=== PATIENT | male | born 1955 | race American Indian/Alaskan Native ===

== ENCOUNTER 2019-01-14 06:19 | Day surgery (SDC) | payer MEDICARE ==
[~2019-01-14] VITALS: Ht 182.9 cm; Wt 131.5 kg
[2019-01-14] VITALS (12 sets, daily range): BP systolic 105–171; BP diastolic 51–107
[2019-01-14] MEDS ORDERED: NORMAL SALINE IV SCH (07:00)
[2019-01-14] MEDS ORDERED: SODIUM BICARBONATE IV SCH (07:00)
[2019-01-14] MEDS ORDERED: normal saline 1,000 ML IV SCH (07:00)
[2019-01-14] MEDS ORDERED: diphenhydrAMINE 25mg capsule PO PRN (07:00)
[2019-01-14] MEDS ORDERED: sodium bicarbonate inj. 75 ML in dextrose 5% water 500ml 500 ML IV SCH (07:11)
[2019-01-14 07:30] LABS: BASOPHILS % (AUTO) 0.7 % (0-1); EOSINOPHILS # (AUTO) 0.2 X10'3 (0-0.9); EOSINOPHILS % (AUTO) 2.3 % (0-6); HEMATOCRIT 47.2 % (42.0-52.0); HEMOGLOBIN 15.8 g/dl (14.0-17.9); LYMPHOCYTES # (AUTO) 2.1 X10'3 (1.1-4.8); MEAN CORPUSCULAR HEMOGLOBIN 28.8 PG (27.0-31.0); MEAN CORPUSCULAR HGB CONC 33.4 g/dL (33.0-36.5); MEAN CORPUSCULAR VOLUME 86.2 FL (78-98); MEAN PLATELET VOLUME 8.3 FL (7.4-10.4); MONOCYTES # (AUTO) 0.6 X10'3 (0-0.9); MONOCYTES % (AUTO) 8.3 % (2-12); NEUTROPHILS # (AUTO) 3.8 X10'3 (1.8-7.7); NEUTROPHILS % (AUTO) 56.7 % (42-75); PLATELET COUNT 215 X10'3 (140-440); RED BLOOD COUNT 5.48 X10'6 (4.70-6.10); RED CELL DISTRIBUTION WIDTH 15.1 % (11.5-14.5); WHITE BLOOD COUNT 6.6 X10'3 (4.5-11.0)
[2019-01-14] MEDS ORDERED: midazolam 2 mg/2 ml injection ONE (07:31)
[2019-01-14 07:32] LABS: ALBUMIN 3.8 G/DL (3.4-5.0); ANION GAP 10 (8-16); BLOOD UREA NITROGEN 12 MG/DL (7-18); BUN/CREATININE RATIO 12.1 (5.4-32.0); CHLORIDE 104 MMOL/L (99-107); CREATININE 0.99 MG/DL (0.60-1.10); GLUCOSE 159 MG/DL (70-104); MAGNESIUM 1.9 MG/DL (1.5-2.4); POTASSIUM 4.1 MMOL/L (3.5-5.1); SODIUM 141 MMOL/L (135-145); TOTAL CARBON DIOXIDE 27.1 MMOL/L (24-32); eGFR 76 ML/MIN
[2019-01-14] MEDS ORDERED: LIDOcaine 1% (10mg/ml)w/preservative injection 20ml MDV ONE (07:32)
[2019-01-14] MEDS ORDERED: fentaNYL/PF 50MCG/1 ML 2ML syringe ONE (07:32)
[2019-01-14] MEDS ORDERED: iohexol 350 MG/ML 50ML vial IV ONE (07:32)
[2019-01-14] MEDS ORDERED: iohexol 350MG/ML 100ml bottle IV ONE (07:32)
[2019-01-14] MEDS ORDERED: nitroGLYCERIN-Tridil 50MG/D5W 250 ML IV ONE (07:38)
[2019-01-14] MEDS ORDERED: verapamil 2.5 mg/ml inj IV ONE (07:38)
[2019-01-14] MEDS ORDERED: heparin 1,000unit/ml 10ml vial 10 ML ONE (07:38)
[2019-01-14] MEDS ORDERED: ATOR20TA PO (07:46)
[2019-01-14] MEDS ORDERED: LISI-600 PO (07:46)
[2019-01-14] MEDS ORDERED: LEVO200T PO (07:46)
[2019-01-14] MEDS ORDERED: FENO145T38 PO (07:46)
[2019-01-14] MEDS ORDERED: FLEC100T2 PO (07:46)
== END 2019-01-14 12:20 | disposition home or self-care (01) ==
LOC: SSTAY O 06:19
PROVIDERS: ATTEND Internal Medicine Cardiovascular Disease
DX: I25.10 Atherosclerotic heart disease of native coronary artery without angina pectoris (principal); I25.82 Chronic total occlusion of coronary artery; I10 Essential (primary) hypertension; E78.5 Hyperlipidemia, unspecified; E11.9 Type 2 diabetes mellitus without complications; G47.33 Obstructive sleep apnea (adult) (pediatric); I48.0 Paroxysmal atrial fibrillation; E66.01 Morbid (severe) obesity due to excess calories; Z68.38 Body mass index [BMI] 38.0-38.9, adult; Z95.5 Presence of coronary angioplasty implant and graft; Z79.899 Other long term (current) drug therapy; Z87.891 Personal history of nicotine dependence; Z88.8 Allergy status to other drugs, medicaments and biological substances
CPT/HCPCS: 36415; 80048; 83735; 85025; 85610; 93458; 99152; 99153; C1894; J1644; J2001; J2250; J3010; J7030; J7060; Q0163; Q9967; A4620; A5120; J3490; J7040

== ENCOUNTER 2019-01-19 06:36 | Inpatient (IN) | payer MEDICARE, OTHER ==
[~2019-01-19] VITALS: Ht 188 cm; Wt 128.3 kg
[2019-01-19] VITALS (13 sets, daily range): BP systolic 95–159; BP diastolic 51–92
[~2019-01-19 06:36] MED LIST: ATOR20TA PO; FENO145T38 PO; FLEC100T2 PO; LEVO200T PO; LISI-600 PO
[2019-01-19] MEDS ORDERED: diphenhydrAMINE 25mg capsule PO PRN (06:55)
[2019-01-19 07:25] LABS: BASOPHILS # (AUTO) 0.1 X10'3 (0-0.2); EOSINOPHILS # (AUTO) 0.2 X10'3 (0-0.9); EOSINOPHILS % (AUTO) 3.2 % (0-6); HEMATOCRIT 42.5 % (42.0-52.0); LYMPHOCYTES # (AUTO) 2.1 X10'3 (1.1-4.8); MEAN CORPUSCULAR HEMOGLOBIN 28.6 PG (27.0-31.0); MEAN CORPUSCULAR VOLUME 86.7 FL (78-98); MEAN PLATELET VOLUME 8.6 FL (7.4-10.4); MONOCYTES # (AUTO) 0.8 X10'3 (0-0.9); MONOCYTES % (AUTO) 9.8 % (2-12); NEUTROPHILS # (AUTO) 4.6 X10'3 (1.8-7.7); PLATELET COUNT 225 X10'3 (140-440); RED BLOOD COUNT 4.91 X10'6 (4.70-6.10); RED CELL DISTRIBUTION WIDTH 15.1 % (11.5-14.5); WHITE BLOOD COUNT 7.8 X10'3 (4.5-11.0)
[2019-01-19] MEDS: normal saline 1,000 ML IV SCH ×2 (07:30→11:25)
[2019-01-19 07:34] LABS: ALBUMIN 3.3 G/DL (3.4-5.0); ANION GAP 8 (8-16); BLOOD UREA NITROGEN 19 MG/DL (7-18); BUN/CREATININE RATIO 19.2 (5.4-32.0); CALCIUM 8.5 MG/DL (8.5-10.1); CHLORIDE 107 MMOL/L (99-107); CREATININE 0.99 MG/DL (0.60-1.10); GLUCOSE 137 MG/DL (70-104); MAGNESIUM 1.9 MG/DL (1.5-2.4); POTASSIUM 4.2 MMOL/L (3.5-5.1); SODIUM 142 MMOL/L (135-145); TOTAL CARBON DIOXIDE 26.9 MMOL/L (24-32); eGFR 76 ML/MIN
[2019-01-19] MEDS ORDERED: iohexol 350 MG/1 ML 200ml bottle ONE ×2 (07:52→10:00)
[2019-01-19] MEDS ORDERED: midazolam 2 mg/2 ml injection ONE ×4 (07:52→11:52)
[2019-01-19] MEDS ORDERED: LIDOcaine 1% (10mg/ml)w/preservative injection 20ml MDV ONE (07:52)
[2019-01-19] MEDS ORDERED: heparin 1,000unit/ml 10ml vial 10 ML ONE ×2 (07:52→10:24)
[2019-01-19] MEDS ORDERED: fentaNYL/PF 50MCG/1 ML 2ML syringe ONE ×2 (07:52→08:46)
[2019-01-19] MEDS ORDERED: proCHLORperazine 10 MG/2 ml inj ONE (08:46)
[2019-01-19] MEDS ORDERED: iohexol 350MG/ML 100ml bottle IV ONE (09:01)
[2019-01-19] MEDS ORDERED: nitroGLYCERIN-Tridil 50MG/D5W 250 ML IV ONE (09:02)
[2019-01-19] MEDS ORDERED: ticagrelor 90mg tablet ONE (09:14)
[2019-01-19] MEDS ORDERED: vancomycin 1,000mg inj ONE (10:00)
[2019-01-19] MEDS ORDERED: amiodarone 150mg/dext, iso-os 100 ML IV ONE (10:00)
[2019-01-19] MEDS ORDERED: cefTAZidime inj. 1 GM in normal saline 100ml IV soln 100 ML IV ONE (10:05)
[2019-01-19] MEDS ORDERED: tirofiban 5mg in NS 100mL 100 ML IV ONE (10:10)
[2019-01-19] MEDS ORDERED: potassium Cl 20 mEq SR tablet PO PRN (10:15)
[2019-01-19] MEDS ORDERED: magnesium Cl slow-release 64mg tablet PO PRN (10:15)
[2019-01-19] MEDS ORDERED: ondansetron/PF 4mg/2ml inj IV PRN (10:15)
[2019-01-19] MEDS ORDERED: sodium phosphate inj. 30 MMOL in dextrose 5%-water 250 ML IV PRN (10:15)
[2019-01-19] MEDS ORDERED: Neutra Phos packet PO PRN (10:15)
[2019-01-19] MEDS ORDERED: magnesium 2GM in 50ml NS 50 ML IV PRN (10:15)
[2019-01-19] MEDS ORDERED: magnesium 4gm in 100ml NS 100 ML IV PRN (10:15)
[2019-01-19] MEDS ORDERED: sodium phosphate inj. 15 MMOL in dextrose 5%-water 150 ML IV PRN (10:15)
[2019-01-19] MEDS ORDERED: alteplase 1 mg/ml 5ml syringe ICATH ONE ×2 (10:15→10:25)
[2019-01-19] MEDS ORDERED: acetaminophen 325mg tablet PO PRN (10:15)
[2019-01-19] MEDS ORDERED: NORepinephrine 8mg/ 250ml NS 250 ML IV ONE (10:19)
[2019-01-19] MEDS ORDERED: NORepinephrine 8mg/ 250ml NS 250 ML IV SCH (10:20)
[2019-01-19] MEDS ORDERED: CISatracurium **Bolus** 2 mg/ml inj IV PRN (10:20)
[2019-01-19] MEDS ORDERED: methylPREDNISolone sod succ 125mg/2ml vial IV ONE (10:20)
[2019-01-19] MEDS ORDERED: sodium bicarbonate (8.4%) 1 mEq/ml syringe ONE ×3 (10:39→12:00)
[2019-01-19 10:40] LABS: ABG BASE EXCESS -16.3 mmol/L (-2.0-3.0); ABG HCO3 13.4 mmol/L (22.0-26.0); ABG OXYGEN SATURATION 94.9 % (95-98); ABG PCO2 (T) 46.4 mmHg (35.0-45.0); ABG PH (T) 7.077 (7.350-7.450); ABG PO2 (T) 112.6 mmHg (83-108); FCOHb 0.6 % (0.5-1.5); FMetHb 0.3 % (0.3-1.12); PEEP 10 cm H2O; RESPIRATORY RATE 16 b/min; TIDAL VOLUME 500 mL; TOTAL HEMOGLOBIN 13.3 G/dl (14.0-17.9)
--- NOTE | 2019-01-19 11:00 | NUR ---
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 Needed 15 defib attempts. Brought to room 2007 to start hypothermic protocol.
[2019-01-19] MEDS: amiodarone/D5 360MG/200ML BAG 200 ML IV SCH ×3 (11:22→22:08)
[2019-01-19] MEDS: NS IV SCH ×2 (11:23→21:15)
[2019-01-19] MEDS: TIROFIBAN IV SCH ×2 (11:23→21:15)
[2019-01-19] MEDS ORDERED: FENTANYL-0.9 % NACL/PF 100 ML IV PRN (11:45)
[2019-01-19] MEDS ORDERED: midazolam 100mg in NS 100ml 100 ML IV PRN (11:45)
[2019-01-19] MEDS ORDERED: midazolam 2 mg/2 ml injection IV PRN (11:45)
[2019-01-19] MEDS: mineral oil/petrolatum ophthal oint OP SCH ×3 (12:00→20:49)
[2019-01-19] MEDS ORDERED: epiNEPHrine 0.1mg/ml 10ml syringe ONE (12:00)
[2019-01-19] MEDS ORDERED: adenosine 3mg/ml 2ml vial IV ONE (12:00)
[2019-01-19] MEDS ORDERED: LIDOcaine 2% (20 mg/ml) 5ml cardiac syringe ONE (12:00)
[2019-01-19] MEDS ORDERED: etomidate 2mg/ml inj. ONE (12:00)
[2019-01-19] MEDS ORDERED: atropine 0.1mg/ml 10ml syringe ONE (12:00)
[2019-01-19] MEDS ORDERED: amiodarone 50MG/ML inj IV ONE (12:00)
[2019-01-19 12:30] LABS: ABG BASE EXCESS -5.1 mmol/L (-2.0-3.0); ABG HCO3 21.2 mmol/L (22.0-26.0); ABG OXYGEN SATURATION 97.9 % (95-98); ABG PCO2 (T) 43.8 mmHg (35.0-45.0); ABG PH (T) 7.303 (7.350-7.450); ABG PO2 (T) 181.2 mmHg (83-108); FCOHb 0.3 % (0.5-1.5); FMetHb 0.3 % (0.3-1.12); FO2Hb 97.3 % (94-100); MINUTE VOLUME 16 L/min; PEEP 5 cm H2O; RESPIRATORY RATE 24 b/min; RESPIRATORY RATE (OBSERVED) 27 b/min; TIDAL VOLUME 500 mL
[2019-01-19 12:35] LABS: OXYGEN SATURATION (MIXED VEN) 50.8 % (60-80); PO2 MIXED VENOUS (TEMP COR) 29.3 mmHg (35-46)
[2019-01-19 12:41] LABS: BASOPHILS % (AUTO) 0.1 % (0-1); EOSINOPHILS % (AUTO) 0.1 % (0-6); HEMATOCRIT 43.9 % (42.0-52.0); LYMPHOCYTES # (AUTO) 1.7 X10'3 (1.1-4.8); LYMPHOCYTES % (AUTO) 9.2 % (21-51); MEAN CORPUSCULAR HEMOGLOBIN 27.8 PG (27.0-31.0); MEAN CORPUSCULAR HGB CONC 31.9 g/dL (33.0-36.5); MEAN CORPUSCULAR VOLUME 87.1 FL (78-98); MEAN PLATELET VOLUME 8.5 FL (7.4-10.4); MONOCYTES # (AUTO) 0.8 X10'3 (0-0.9); MONOCYTES % (AUTO) 4.4 % (2-12); NEUTROPHILS # (AUTO) 16.4 X10'3 (1.8-7.7); NEUTROPHILS % (AUTO) 86.2 % (42-75); PLATELET COUNT 257 X10'3 (140-440); RED BLOOD COUNT 5.04 X10'6 (4.70-6.10); RED CELL DISTRIBUTION WIDTH 15.1 % (11.5-14.5)
[2019-01-19] MEDS: midazolam 100mg in NS 100ml 100 ML IV PRN (12:44)
[2019-01-19] MEDS: FENTANYL-0.9 % NACL/PF 100 ML IV PRN (12:58)
[2019-01-19 13:04] LABS: AMMONIA < 10 UMOL/L (11-32)
[2019-01-19 13:07] LABS: ALANINE AMINOTRANSFERASE 345 U/L (12-78); ALBUMIN 3.1 G/DL (3.4-5.0); ALBUMIN/GLOBULIN RATIO 0.8 (1.1-1.5); ALKALINE PHOSPHATASE 83 IU/L (46-116); AMYLASE 40 U/L (25-115); ANION GAP 16 (8-16); ASPARTATE AMINO TRANSFERASE 387 U/L (10-37); BILIRUBIN,TOTAL 0.5 MG/DL (0.1-1.0); BLOOD UREA NITROGEN 18 MG/DL (7-18); BUN/CREATININE RATIO 14.2 (5.4-32.0); CALCIUM 7.5 MG/DL (8.5-10.1); CHLORIDE 103 MMOL/L (99-107); CREATININE 1.27 MG/DL (0.60-1.10); GLUCOSE 315 MG/DL (70-104); LDL CHOLESTEROL 108 MG/DL (50-100); LIPASE 75 U/L (73-393); PHOSPHORUS 4.9 MG/DL (2.3-4.5); POTASSIUM 4.1 MMOL/L (3.5-5.1); SODIUM 142 MMOL/L (135-145); TOTAL CARBON DIOXIDE 22.6 MMOL/L (24-32); TOTAL PROTEIN 7.1 G/DL (6.4-8.2); eGFR 57 ML/MIN
[2019-01-19] MEDS ORDERED: nitroGLYCERIN-Tridil 50MG/D5W 250 ML IV PRN (13:10)
[2019-01-19 13:15] LABS: LACTIC SEPSIS 6.6 MMOL/L (0.4-2.0)
[2019-01-19] MEDS ORDERED: esmolol/sodium cl bag 250 ML IV SCH (13:15)
[2019-01-19] MEDS: esmolol/sodium cl bag 250 ML IV SCH ×2 (13:21→21:15)
--- NOTE | 2019-01-19 13:33 | NUR ---
PEr Dr. Guerrero, patient received Brilinta in [facility].
[2019-01-19] MEDS: ipratropium/albuterol 3ml nebule NEB PRN ×2 (13:47→19:11)
[2019-01-19 14:05] LABS: PARTIAL THROMBOPLASTIN TIME 45 SECONDS (22-32); PLATELET COUNT 257 X10'3 (140-440)
[2019-01-19 14:06] LABS: D-DIMER 14.93 MG/L FEU (0-0.50)
[2019-01-19] MEDS: methylPREDNISolone sod succ 125mg/2ml vial IV SCH ×2 (14:33→20:47)
[2019-01-19] MEDS ORDERED: dextrose 50%-water 50ml dispensing syringe IV PRN ×2 (14:55)
[2019-01-19] MEDS ORDERED: MESSAGE TO PHARMACY PO ONE (14:55)
[2019-01-19] MEDS ORDERED: dextrose ORAL solution 15 GM/59 ML bottle PO PRN ×2 (14:55)
[2019-01-19] MEDS ORDERED: glucagon, human recombinant 1mg kit SUBCUT PRN (14:55)
[2019-01-19] MEDS: ceftazidime 1000mg in D5W 50ml 50 ML IV SCH (16:38)
[2019-01-19 16:46] LABS: ABG BASE EXCESS -6.1 mmol/L (-2.0-3.0); ABG HCO3 17.4 mmol/L (22.0-26.0); ABG OXYGEN SATURATION 97.2 % (95-98); ABG PH (T) 7.395 (7.350-7.450); ABG PO2 (T) 114.6 mmHg (83-108); FCOHb 0.3 % (0.5-1.5); FLOW 35 L/min; FMetHb 0.3 % (0.3-1.12); FO2Hb 96.6 % (94-100); MINUTE VOLUME 12 L/min; PATIENT TEMPERATURE 36.9; PEEP 5 cm H2O; RESPIRATORY RATE 24 b/min; RESPIRATORY RATE (OBSERVED) 24 b/min; TIDAL VOLUME 500 mL; TOTAL HEMOGLOBIN 13.8 G/dl (14.0-17.9)
--- NOTE | 2019-01-19 16:50 | NUR ---
Updated Dr. Guerrero via phone regarding dropping CO2 on monitor of 24, ABG shows CO2 29, Bicarb 17 and pH 7.395. He suggested to decrease FiO2 and possible extubate tomorrow. He wants to hold off on giving dobutamine. Addendum: 01/19/19 at 1842 by Karla Jones RN He states he does not want to give bicarb.
--- NOTE | 2019-01-19 18:40 | NUR ---
Problems reprioritized. Patient report given, questions answered & plan of care reviewed with Emiliano GRIMM.
[2019-01-19 18:54] LABS: CLARITY,URINE CLEAR (Clear); COLOR,URINE YELLOW (Yellow); GLUCOSE, URINE 500 mg/dl (Neg); KETONES,URINE 40 mg/dl (Neg); LEUKOCYTE ESTERASE ,URINE NEGATIVE (Neg); NITRITES, URINE NEGATIVE (Neg); OCCULT BLOOD,URINE LARGE (Neg); PROTEIN,URINE 100 mg/dl (Neg); UROBILINOGEN,URINE 0.2 E.U/dL (0.2-1.0)
[2019-01-19 18:59] LABS: UA COLLECTION TYPE FOLEY CATH
[2019-01-19 19:02] LABS: AMORPHOUS URATES 1+; BACTERIA,URINE FEW /HPF (Neg); MUCUS STRANDS NONE SEEN /LPF (Neg); SQUAMOUS EPITHELIAL CELL,UR NONE SEEN /LPF (FEW)
[2019-01-19] MEDS ORDERED: docusate sod 100mg capsule PO SCH (20:00)
[2019-01-19] MEDS ORDERED: vancomycin/NS 1 GM ADD-VANTAGE 250 ML IV SCH (20:00)
[2019-01-19] MEDS: ticagrelor 90mg tablet PO SCH (20:47)
[2019-01-19] MEDS: insulin Lispro (HumaLOG) vial - multi-dose SQ SCH (20:52)
[2019-01-19] MEDS: insulin glargine (Lantus) pen - multi-dose SQ SCH (20:54)
[2019-01-20] VITALS (27 sets, daily range): BP systolic 89–149; BP diastolic 49–96
[2019-01-20] MEDS: NS IV SCH ×5 (00:02→11:26)
[2019-01-20] MEDS: TIROFIBAN IV SCH ×5 (00:02→11:26)
[2019-01-20] MEDS: ceftazidime 1000mg in D5W 50ml 50 ML IV SCH ×3 (00:10→15:53)
[2019-01-20] MEDS: mineral oil/petrolatum ophthal oint OP SCH ×4 (00:11→12:00)
[2019-01-20] MEDS: methylPREDNISolone sod succ 125mg/2ml vial IV SCH ×4 (01:49→20:55)
[2019-01-20] MEDS: insulin Lispro (HumaLOG) vial - multi-dose SQ SCH ×3 (01:53→21:15)
[2019-01-20] MEDS: esmolol/sodium cl bag 250 ML IV SCH ×4 (02:13→21:17)
[2019-01-20 02:35] LABS: ABG HCO3 21.6 mmol/L (22.0-26.0); ABG OXYGEN SATURATION 96.3 % (95-98); ABG PCO2 (T) 30.4 mmHg (35.0-45.0); ABG PH (T) 7.471 (7.350-7.450); ABG PO2 (T) 94.2 mmHg (83-108); FCOHb 0.3 % (0.5-1.5); FMetHb 0.3 % (0.3-1.12); FO2Hb 95.7 % (94-100); MINUTE VOLUME 12 L/min; PATIENT TEMPERATURE 37.3; PEEP 5 cm H2O; RESPIRATORY RATE 24 b/min; RESPIRATORY RATE (OBSERVED) 24 b/min; TIDAL VOLUME 500 mL; TOTAL HEMOGLOBIN 12.9 G/dl (14.0-17.9)
[2019-01-20 02:50] LABS: BASOPHILS % (AUTO) 0 % (0-1); EOSINOPHILS % (AUTO) 0 % (0-6); HEMATOCRIT 39.7 % (42.0-52.0); HEMOGLOBIN 12.7 g/dl (14.0-17.9); LYMPHOCYTES % (AUTO) 7.2 % (21-51); MEAN CORPUSCULAR HEMOGLOBIN 27.6 PG (27.0-31.0); MEAN CORPUSCULAR HGB CONC 32.1 g/dL (33.0-36.5); MEAN PLATELET VOLUME 8.8 FL (7.4-10.4); MONOCYTES # (AUTO) 0.6 X10'3 (0-0.9); MONOCYTES % (AUTO) 4.2 % (2-12); NEUTROPHILS # (AUTO) 12.8 X10'3 (1.8-7.7); NEUTROPHILS % (AUTO) 88.6 % (42-75); PLATELET COUNT 236 X10'3 (140-440); RED BLOOD COUNT 4.61 X10'6 (4.70-6.10); RED CELL DISTRIBUTION WIDTH 15.2 % (11.5-14.5); WHITE BLOOD COUNT 14.5 X10'3 (4.5-11.0)
[2019-01-20 03:09] LABS: ALANINE AMINOTRANSFERASE 272 U/L (12-78); ALBUMIN 2.6 G/DL (3.4-5.0); ALBUMIN/GLOBULIN RATIO 0.7 (1.1-1.5); ALKALINE PHOSPHATASE 62 IU/L (46-116); ANION GAP 12 (8-16); ASPARTATE AMINO TRANSFERASE 490 U/L (10-37); BILIRUBIN,TOTAL 0.3 MG/DL (0.1-1.0); BLOOD UREA NITROGEN 20 MG/DL (7-18); BUN/CREATININE RATIO 16.3 (5.4-32.0); CALCIUM 7.3 MG/DL (8.5-10.1); CHLORIDE 108 MMOL/L (99-107); CREATININE 1.23 MG/DL (0.60-1.10); GLUCOSE 282 MG/DL (70-104); MAGNESIUM 1.6 MG/DL (1.5-2.4); PHOSPHORUS 2.1 MG/DL (2.3-4.5); POTASSIUM 4.4 MMOL/L (3.5-5.1); SODIUM 141 MMOL/L (135-145); TOTAL PROTEIN 6.2 G/DL (6.4-8.2); eGFR 59 ML/MIN
[2019-01-20] MEDS: amiodarone/D5 360MG/200ML BAG 200 ML IV SCH ×4 (03:29→22:24)
[2019-01-20] MEDS: normal saline 1,000 ML IV SCH ×3 (03:33→22:55)
[2019-01-20 03:43] LABS: TROPONIN I 88.93 NG/ML (0.0-0.05)
[2019-01-20] MEDS: midazolam 100mg in NS 100ml 100 ML IV PRN (04:56)
[2019-01-20] MEDS: FENTANYL-0.9 % NACL/PF 100 ML IV PRN (04:57)
--- NOTE | 2019-01-20 06:30 | NUR ---
Patient in room CICU 2007. I have received report from Emiliano GRIMM and had the opportunity to ask questions and assume patient care.
[2019-01-20] MEDS: pantoprazole 40 MG vial IV SCH (08:00)
[2019-01-20] MEDS ORDERED: FLECAINIDE ACETATE PO SCH (08:00)
[2019-01-20] MEDS: lisinopril 20mg tablet PO SCH (08:00)
[2019-01-20] MEDS: fenofibrate 145mg tablet PO SCH (08:19)
[2019-01-20] MEDS: docusate sodium 100mg/10ml UD cup OGT SCH ×2 (08:19→20:56)
[2019-01-20] MEDS: atorvastatin 20mg tablet PO SCH (08:19)
[2019-01-20] MEDS: ticagrelor 90mg tablet PO SCH ×2 (08:19→20:56)
[2019-01-20] MEDS: levoTHYROXINE 75mcg tablet PO SCH (08:22)
[2019-01-20] MEDS ORDERED: furosemide 20 MG/2 ML vial IV ONE (08:55)
--- NOTE | 2019-01-20 11:12 | NUR ---
Extubated and placed on 3LNC. Patient alert and oriented, swallowing well.
[2019-01-20] MEDS ORDERED: VANCOMYCIN LEVEL IV ONE (11:30)
--- NOTE | 2019-01-20 11:30 | NUR ---
Spoke to Dr. Talbert about Aggrastat continuing, beginning Heparin, and possibly holding Flecanide while Amiodarone is running. Flecanide will be held, Heparin will be started, and Aggrastat has orders to stop at 1600. Per Dr. Guerrero, once Aggrastat is finished, Left Groin Art line will be D/C'd, as well as Right Groin Central Line. PICC line to be placed.
[2019-01-20] MEDS ORDERED: nitroGLYCERIN-Tridil 50MG/D5W 250 ML IV PRN (11:50)
[2019-01-20] MEDS ORDERED: HYDROmorphone 1 mg/ml syringe IV PRN (11:55)
--- NOTE | 2019-01-20 11:58 | NUR ---
DM Consult: Pt intubated s/p v.fib arrest w/ [place]. EF now 25% down from normal ranges last week per MD. Pending extubation today as well as diet advancement to carb controlled following. Hx DM A1C 7.0; will need ed once stable s/p extubation. LBM / receiving colace. Rogelio 12; skin intact. Will continue to monitor. Rec: 1. advance to carb controlled/heart healthy diet per MD s/p extubation 2. DM ed once stable prior to d/c 3. wt per rx Addendum: 01/20/19 at [address] Amended: Links added.
[2019-01-20] MEDS ORDERED: ISOS30TA6 PO (12:06)
[2019-01-20] MEDS: HYDROmorphone inj. 0.5 MG/0.5 ML DISP.SYRIN IV PRN ×2 (15:56→21:04)
--- NOTE | 2019-01-20 17:03 | NUR ---
1600 - Aggrastat d/c'd 1622 - Femoral Sheath D/c'd, pressure held for 15 minutes, no hematoma, no s/s of abnormal bleeding. Femstop applied as patient is on Brillinta, Aggrastat, and ASA. 1640 - Left groin central line D/C'd, no abnormal signs or symptoms noted at insertion site.
--- NOTE | 2019-01-20 18:30 | NUR ---
Patient in room CICU 2007. I have received report and had the opportunity to ask questions and assume patient care.
--- NOTE | 2019-01-20 18:36 | NUR ---
Problems reprioritized. Patient report given, questions answered & plan of care reviewed with Mary GRIMM.
[2019-01-20] MEDS: heparin, porcine 5000 units/ml vial SQ SCH (20:56)
[2019-01-20] MEDS: lactobacillus rhamnosus 10,000 MMU CELLS/CAPSULE PO SCH (20:56)
[2019-01-20] MEDS: Melatonin 3mg tablet PO SCH (21:00)
[2019-01-20] MEDS: insulin glargine (Lantus) pen - multi-dose SQ SCH (21:17)
[2019-01-21] VITALS (24 sets, daily range): BP systolic 99–167; BP diastolic 44–96
--- NOTE | 2019-01-21 | NUR ---
femstop removed. hemostasis achieved. dressing is dry and intact without hematoma. pt educated on s/s of bleeding. pt verbalized understanding of education.
[2019-01-21] MEDS: ceftazidime 1000mg in D5W 50ml 50 ML IV SCH ×4 (01:02→23:46)
[2019-01-21] MEDS: methylPREDNISolone sod succ 125mg/2ml vial IV SCH ×2 (02:02→09:16)
[2019-01-21] MEDS: esmolol/sodium cl bag 250 ML IV SCH ×2 (04:09→10:38)
[2019-01-21 04:28] LABS: BASOPHILS % (AUTO) 0.1 % (0-1); EOSINOPHILS % (AUTO) 0 % (0-6); HEMATOCRIT 36.5 % (42.0-52.0); HEMOGLOBIN 11.8 g/dl (14.0-17.9); LYMPHOCYTES # (AUTO) 1.2 X10'3 (1.1-4.8); LYMPHOCYTES % (AUTO) 6.7 % (21-51); MEAN CORPUSCULAR HEMOGLOBIN 28.1 PG (27.0-31.0); MEAN CORPUSCULAR HGB CONC 32.4 g/dL (33.0-36.5); MEAN CORPUSCULAR VOLUME 86.5 FL (78-98); MEAN PLATELET VOLUME 8.8 FL (7.4-10.4); MONOCYTES % (AUTO) 5.5 % (2-12); NEUTROPHILS # (AUTO) 16.2 X10'3 (1.8-7.7); NEUTROPHILS % (AUTO) 87.7 % (42-75); PLATELET COUNT 177 X10'3 (140-440); RED BLOOD COUNT 4.22 X10'6 (4.70-6.10); RED CELL DISTRIBUTION WIDTH 15.1 % (11.5-14.5); WHITE BLOOD COUNT 18.4 X10'3 (4.5-11.0)
[2019-01-21] MEDS: amiodarone/D5 360MG/200ML BAG 200 ML IV SCH ×2 (04:36→10:32)
[2019-01-21 04:53] LABS: ALANINE AMINOTRANSFERASE 190 U/L (12-78); ALBUMIN 2.7 G/DL (3.4-5.0); ALBUMIN/GLOBULIN RATIO 0.8 (1.1-1.5); ALKALINE PHOSPHATASE 59 IU/L (46-116); ANION GAP 9 (8-16); ASPARTATE AMINO TRANSFERASE 193 U/L (10-37); BILIRUBIN,TOTAL 0.3 MG/DL (0.1-1.0); BLOOD UREA NITROGEN 22 MG/DL (7-18); BUN/CREATININE RATIO 18.6 (5.4-32.0); CALCIUM 7.7 MG/DL (8.5-10.1); CHLORIDE 107 MMOL/L (99-107); CREATININE 1.18 MG/DL (0.60-1.10); GLUCOSE 222 MG/DL (70-104); MAGNESIUM 1.8 MG/DL (1.5-2.4); PHOSPHORUS 3.3 MG/DL (2.3-4.5); POTASSIUM 4.2 MMOL/L (3.5-5.1); SODIUM 140 MMOL/L (135-145); TOTAL CARBON DIOXIDE 23.8 MMOL/L (24-32); TOTAL PROTEIN 6.3 G/DL (6.4-8.2); eGFR 62 ML/MIN
[2019-01-21 05:34] LABS: TROPONIN I 41.93 NG/ML (0.0-0.05)
[2019-01-21] MEDS: normal saline 1,000 ML IV SCH (08:55)
[2019-01-21] MEDS: levoTHYROXINE 75mcg tablet PO SCH (09:10)
[2019-01-21] MEDS: docusate sodium 100mg/10ml UD cup OGT SCH ×2 (09:14→20:35)
[2019-01-21] MEDS: ticagrelor 90mg tablet PO SCH ×2 (09:14→20:36)
[2019-01-21] MEDS: lactobacillus rhamnosus 10,000 MMU CELLS/CAPSULE PO SCH ×2 (09:14→20:36)
[2019-01-21] MEDS: fenofibrate 145mg tablet PO SCH (09:14)
[2019-01-21] MEDS: lisinopril 20mg tablet PO SCH (09:14)
[2019-01-21] MEDS: atorvastatin 20mg tablet PO SCH (09:14)
[2019-01-21] MEDS: heparin, porcine 5000 units/ml vial SQ SCH ×2 (09:15→20:36)
[2019-01-21] MEDS: insulin Lispro (HumaLOG) vial - multi-dose SQ SCH ×3 (09:37→20:44)
[2019-01-21] MEDS: pantoprazole 40 MG vial IV SCH (09:40)
[2019-01-21] MEDS ORDERED: bisacodyl 10mg suppository rectal RC PRN (10:15)
--- NOTE | 2019-01-21 11:25 | NUR ---
reassessment: Pt s/p extubation PO 50-75% first meals. LBM 01/18. Per RN pt reports checking GLU because of SO DM usually 110-140 mg/dl at home but pt is not acutally aware of own DM. Requires official MD discussion prior to RD visit for DM ed. Will continue to monitor. Rec: 1. continue carb controlled diet 2. DM ed once stable prior to d/c following official DX 3. wt per rx Addendum: 01/21/19 at [address] Amended: Links added.
[2019-01-21] MEDS: furosemide 40mg/4ml inj IV SCH (11:53)
[2019-01-21] MEDS: carVEDilol 3.125mg tablet PO SCH ×2 (11:53→20:36)
[2019-01-21] MEDS ORDERED: LORazepam 2 mg/ml vial IV ONE (15:10)
--- NOTE | 2019-01-21 18:37 | NUR ---
Problems reprioritized. Patient report given, questions answered & plan of care reviewed with Mac RN.
[2019-01-21] MEDS ORDERED: carVEDilol 3.125mg tablet PO SCH (20:00)
[2019-01-21] MEDS ORDERED: VANCOMYCIN LEVEL IV ONE (20:30)
[2019-01-21] MEDS: amiodarone 200mg tablet PO SCH (20:36)
[2019-01-21] MEDS: HYDROmorphone inj. 0.5 MG/0.5 ML DISP.SYRIN IV PRN (20:37)
[2019-01-21] MEDS: Melatonin 3mg tablet PO SCH (20:48)
[2019-01-21] MEDS: insulin glargine (Lantus) pen - multi-dose SQ SCH (20:48)
[2019-01-21] MEDS ORDERED: polyvinyl alcohol ophthalmic drops 15ml bottle EACHEYE PRN (22:10)
[2019-01-21] MEDS ORDERED: guaiFENesin 200 MG/10 ML oral syrup UD cup PO PRN (23:10)
[2019-01-22] VITALS (14 sets, daily range): BP systolic 102–183; BP diastolic 64–93
--- NOTE | 2019-01-22 06:00 | NUR ---
RN Note -Shift Summary Pt has been unable to sleep, refused sleep medication. Has been increasingly restless and anxious throughout shift.
--- NOTE | 2019-01-22 06:00 | NUR ---
Problems reprioritized. Patient report given, questions answered & plan of care reviewed with Art, RN.
--- NOTE | 2019-01-22 06:22 | NUR ---
Patient in room CICU 2007. I have received report from Eddie GRIMM and had the opportunity to ask questions and assume patient care.
[2019-01-22] MEDS ORDERED: VANCOMYCIN LEVEL IV ONE (07:30)
[2019-01-22] MEDS: docusate sodium 100mg/10ml UD cup OGT SCH ×2 (07:54→21:31)
[2019-01-22 07:55] LABS: BASOPHILS % (AUTO) 0.2 % (0-1); EOSINOPHILS % (AUTO) 0 % (0-6); HEMATOCRIT 37.4 % (42.0-52.0); HEMOGLOBIN 12.1 g/dl (14.0-17.9); LYMPHOCYTES # (AUTO) 1.7 X10'3 (1.1-4.8); LYMPHOCYTES % (AUTO) 9.4 % (21-51); MEAN CORPUSCULAR HEMOGLOBIN 28.1 PG (27.0-31.0); MEAN CORPUSCULAR HGB CONC 32.3 g/dL (33.0-36.5); MEAN CORPUSCULAR VOLUME 86.9 FL (78-98); MONOCYTES # (AUTO) 1.7 X10'3 (0-0.9); MONOCYTES % (AUTO) 9.6 % (2-12); NEUTROPHILS # (AUTO) 14.2 X10'3 (1.8-7.7); NEUTROPHILS % (AUTO) 80.8 % (42-75); PLATELET COUNT 179 X10'3 (140-440); RED BLOOD COUNT 4.31 X10'6 (4.70-6.10); RED CELL DISTRIBUTION WIDTH 15.2 % (11.5-14.5); WHITE BLOOD COUNT 17.6 X10'3 (4.5-11.0)
[2019-01-22] MEDS: pantoprazole 40mg Tablet.DR PO SCH (07:57)
[2019-01-22] MEDS: lactobacillus rhamnosus 10,000 MMU CELLS/CAPSULE PO SCH ×2 (07:57→21:29)
[2019-01-22] MEDS: furosemide 40mg/4ml inj IV SCH (07:57)
[2019-01-22] MEDS: levoTHYROXINE 75mcg tablet PO SCH (07:57)
[2019-01-22] MEDS: fenofibrate 145mg tablet PO SCH (07:58)
[2019-01-22] MEDS: amiodarone 200mg tablet PO SCH ×2 (07:58→21:29)
[2019-01-22] MEDS: lisinopril 20mg tablet PO SCH (07:59)
[2019-01-22] MEDS: carVEDilol 3.125mg tablet PO SCH ×2 (07:59→21:30)
[2019-01-22] MEDS: ticagrelor 90mg tablet PO SCH ×2 (07:59→21:35)
[2019-01-22] MEDS ORDERED: methylPREDNISolone sod succ 125mg/2ml vial IV SCH (08:00)
[2019-01-22] MEDS: atorvastatin 20mg tablet PO SCH (08:00)
[2019-01-22] MEDS: heparin, porcine 5000 units/ml vial SQ SCH (08:01)
[2019-01-22 08:20] LABS: ALANINE AMINOTRANSFERASE 142 U/L (12-78); ALBUMIN 2.8 G/DL (3.4-5.0); ALBUMIN/GLOBULIN RATIO 0.7 (1.1-1.5); ALKALINE PHOSPHATASE 61 IU/L (46-116); ANION GAP 9 (8-16); ASPARTATE AMINO TRANSFERASE 82 U/L (10-37); BILIRUBIN,TOTAL 0.5 MG/DL (0.1-1.0); BLOOD UREA NITROGEN 29 MG/DL (7-18); CALCIUM 7.9 MG/DL (8.5-10.1); CHLORIDE 104 MMOL/L (99-107); CREATININE 1.26 MG/DL (0.60-1.10); GLUCOSE 142 MG/DL (70-104); MAGNESIUM 2.1 MG/DL (1.5-2.4); PHOSPHORUS 3.2 MG/DL (2.3-4.5); POTASSIUM 3.7 MMOL/L (3.5-5.1); SODIUM 143 MMOL/L (135-145); TOTAL CARBON DIOXIDE 29.6 MMOL/L (24-32); TOTAL PROTEIN 6.6 G/DL (6.4-8.2); eGFR 58 ML/MIN
[2019-01-22 08:27] LABS: VANCOMYCIN,TROUGH 28.5 UG/ML (6.0-14.0)
[2019-01-22] MEDS ORDERED: cloNIDine 0.1 mg tablet PO PRN (09:00)
--- NOTE | 2019-01-22 09:47 | NUR ---
Jones Catheter D/C'd, patient tolerated well, some hematuria noted. Patient is already voiding.
--- NOTE | 2019-01-22 10:22 | NUR ---
Report called to Art RN on ACCE. All belongings will be sent with patient to 310.
[2019-01-22] MEDS: ceftazidime 1000mg in D5W 50ml 50 ML IV SCH ×2 (10:25→17:15)
--- NOTE | 2019-01-22 11:33 | NUR ---
Pt arrived from ICU. Pt transferred to bed. Skin check done. Pt oriented to room. Initial pt questions answered.
--- NOTE | 2019-01-22 13:02 | NUR ---
Agree with physical assessment from 0800
[2019-01-22] MEDS: insulin Lispro (HumaLOG) vial - multi-dose SQ SCH ×2 (13:57→19:53)
--- NOTE | 2019-01-22 16:31 | NUR ---
Requested Ceftazidime for this pt from pharmacy
[2019-01-22] MEDS: acetaminophen 325mg tablet PO PRN ×2 (17:19→17:20)
--- NOTE | 2019-01-22 18:00 | NUR ---
Patient in room MED 310. I have received report from ART RN and had the opportunity to ask questions and assume patient care.
--- NOTE | 2019-01-22 18:00 | NUR ---
Patient in room MED 310. I have received report from Art, RN, and had the opportunity to ask questions and assume patient care.
[2019-01-22] MEDS: insulin glargine (Lantus) pen - multi-dose SQ SCH (21:00)
[2019-01-22] MEDS: Melatonin 3mg tablet PO SCH (21:00)
[2019-01-23] MEDS: temazepam 15mg capsule PO PRN ×2 (00:32→00:36)
[2019-01-23] MEDS: ceftazidime 1000mg in D5W 50ml 50 ML IV SCH ×4 (01:09→23:45)
[2019-01-23 02:00] VITALS: BP 119/49
[2019-01-23] MEDS ORDERED: VANCOMYCIN LEVEL IV SCH (03:00)
[2019-01-23 05:20] LABS: EOSINOPHILS % (AUTO) 0.1 % (0-6); HEMATOCRIT 39.8 % (42.0-52.0); LYMPHOCYTES # (AUTO) 1.8 X10'3 (1.1-4.8); MEAN CORPUSCULAR HEMOGLOBIN 28.5 PG (27.0-31.0)
[2019-01-23 05:25] LABS: BASOPHILS % (AUTO) 0 % (0-1); LYMPHOCYTES % (AUTO) 10.6 % (21-51); MEAN CORPUSCULAR HGB CONC 32.7 g/dL (33.0-36.5); MEAN CORPUSCULAR VOLUME 87.2 FL (78-98); MEAN PLATELET VOLUME 8.9 FL (7.4-10.4); MONOCYTES # (AUTO) 1.7 X10'3 (0-0.9); MONOCYTES % (AUTO) 10.2 % (2-12); NEUTROPHILS # (AUTO) 13.3 X10'3 (1.8-7.7); NEUTROPHILS % (AUTO) 79.1 % (42-75); PLATELET COUNT 185 X10'3 (140-440); RED BLOOD COUNT 4.57 X10'6 (4.70-6.10); RED CELL DISTRIBUTION WIDTH 14.6 % (11.5-14.5); WHITE BLOOD COUNT 16.9 X10'3 (4.5-11.0)
[2019-01-23 06:00] VITALS: BP 149/80
--- NOTE | 2019-01-23 06:00 | NUR ---
reviewed and agreed with Jovanny Youngblood RN's charting
[2019-01-23 06:28] LABS: ALANINE AMINOTRANSFERASE 105 U/L (12-78); ALBUMIN 2.8 G/DL (3.4-5.0); ALBUMIN/GLOBULIN RATIO 0.7 (1.1-1.5); ALKALINE PHOSPHATASE 64 IU/L (46-116); ANION GAP 8 (8-16); ASPARTATE AMINO TRANSFERASE 48 U/L (10-37); BILIRUBIN,TOTAL 0.8 MG/DL (0.1-1.0); BLOOD UREA NITROGEN 29 MG/DL (7-18); BUN/CREATININE RATIO 27.6 (5.4-32.0); CALCIUM 8.4 MG/DL (8.5-10.1); CHLORIDE 104 MMOL/L (99-107); CREATININE 1.05 MG/DL (0.60-1.10); GLUCOSE 124 MG/DL (70-104); MAGNESIUM 2.1 MG/DL (1.5-2.4); POTASSIUM 3.8 MMOL/L (3.5-5.1); SODIUM 143 MMOL/L (135-145); TOTAL CARBON DIOXIDE 31.1 MMOL/L (24-32); TOTAL PROTEIN 6.7 G/DL (6.4-8.2); eGFR 71 ML/MIN
--- NOTE | 2019-01-23 06:38 | NUR ---
Patient in room MED 316. I have received report from Prem and had the opportunity to ask questions and assume patient care.
[2019-01-23] MEDS: docusate sodium 100mg/10ml UD cup OGT SCH ×2 (07:42→20:53)
[2019-01-23] MEDS: carVEDilol 3.125mg tablet PO SCH ×2 (07:43→20:54)
[2019-01-23] MEDS: levoTHYROXINE 75mcg tablet PO SCH (07:45)
[2019-01-23] MEDS: amiodarone 200mg tablet PO SCH ×2 (07:45→20:53)
[2019-01-23] MEDS: furosemide 40mg tablet PO SCH (07:45)
[2019-01-23] MEDS: fenofibrate 145mg tablet PO SCH (07:45)
[2019-01-23] MEDS: enoxaparin 40mg/0.4ml syringe SUBCUT SCH (07:47)
[2019-01-23] MEDS: lactobacillus rhamnosus 10,000 MMU CELLS/CAPSULE PO SCH ×2 (07:48→20:53)
[2019-01-23] MEDS: atorvastatin 20mg tablet PO SCH (07:48)
[2019-01-23] MEDS: pantoprazole 40mg Tablet.DR PO SCH (07:48)
[2019-01-23] MEDS: lisinopril 20mg tablet PO SCH (07:49)
[2019-01-23] MEDS: ticagrelor 90mg tablet PO SCH ×2 (08:13→20:53)
[2019-01-23] MEDS: insulin Lispro (HumaLOG) vial - multi-dose SQ SCH ×3 (09:50→21:10)
[2019-01-23 11:00] VITALS: BP 150/86
[2019-01-23] MEDS: celeCOXIB 100mg capsule PO SCH (13:05)
[2019-01-23 15:00] VITALS: BP 134/75
--- NOTE | 2019-01-23 16:25 | NUR ---
Orientee documentation: I have reviewed and agree with all interventions, assessments performed and documented by ALFA Miles .
[2019-01-23 18:00] VITALS: BP 140/67
--- NOTE | 2019-01-23 18:00 | NUR ---
Patient in room MED 316. I have received report from Art RN and had the opportunity to ask questions and assume patient care.
--- NOTE | 2019-01-23 18:35 | NUR ---
Problems reprioritized. Patient report given, questions answered & plan of care reviewed with Gianni.
[2019-01-23] MEDS: zolpidem 5mg tablet PO PRN (20:54)
[2019-01-23] MEDS: insulin glargine (Lantus) pen - multi-dose SQ SCH ×2 (20:57→21:09)
[2019-01-23] MEDS: Melatonin 3mg tablet PO SCH (20:59)
--- NOTE | 2019-01-23 20:59 | NUR ---
Patient in room MED 316. I have received report from Art RN and had the opportunity to ask questions and assume patient care.
--- NOTE | 2019-01-23 21:11 | NUR ---
Pt refused both regular insulin for dinner coverage and lantus. Staff nurse provided teaching for hyperglycemia and non-compliance.
[2019-01-23 22:00] VITALS: BP 127/63
[2019-01-24 05:06] LABS: BASOPHILS % (AUTO) 0 % (0-1); EOSINOPHILS # (AUTO) 0.2 X10'3 (0-0.9); EOSINOPHILS % (AUTO) 2.3 % (0-6); HEMATOCRIT 38.5 % (42.0-52.0); HEMOGLOBIN 12.8 g/dl (14.0-17.9); LYMPHOCYTES # (AUTO) 1.9 X10'3 (1.1-4.8); LYMPHOCYTES % (AUTO) 17.2 % (21-51); MEAN CORPUSCULAR HGB CONC 33.4 g/dL (33.0-36.5); MEAN CORPUSCULAR VOLUME 86.8 FL (78-98); MEAN PLATELET VOLUME 8.9 FL (7.4-10.4); MONOCYTES # (AUTO) 1.2 X10'3 (0-0.9); MONOCYTES % (AUTO) 11.3 % (2-12); NEUTROPHILS # (AUTO) 7.5 X10'3 (1.8-7.7); NEUTROPHILS % (AUTO) 69.2 % (42-75); PLATELET COUNT 209 X10'3 (140-440); RED BLOOD COUNT 4.43 X10'6 (4.70-6.10); RED CELL DISTRIBUTION WIDTH 14.4 % (11.5-14.5); WHITE BLOOD COUNT 10.9 X10'3 (4.5-11.0)
[2019-01-24 05:19] LABS: ALANINE AMINOTRANSFERASE 76 U/L (12-78); ALBUMIN 2.7 G/DL (3.4-5.0); ALBUMIN/GLOBULIN RATIO 0.7 (1.1-1.5); ALKALINE PHOSPHATASE 60 IU/L (46-116); ANION GAP 5 (8-16); ASPARTATE AMINO TRANSFERASE 31 U/L (10-37); BLOOD UREA NITROGEN 29 MG/DL (7-18); BUN/CREATININE RATIO 26.6 (5.4-32.0); CALCIUM 9.1 MG/DL (8.5-10.1); CHLORIDE 104 MMOL/L (99-107); CREATININE 1.09 MG/DL (0.60-1.10); GLUCOSE 154 MG/DL (70-104); MAGNESIUM 2.3 MG/DL (1.5-2.4); PHOSPHORUS 3.3 MG/DL (2.3-4.5); POTASSIUM 3.4 MMOL/L (3.5-5.1); SODIUM 143 MMOL/L (135-145); TOTAL CARBON DIOXIDE 34.1 MMOL/L (24-32); TOTAL PROTEIN 6.5 G/DL (6.4-8.2); eGFR 68 ML/MIN
[2019-01-24 06:00] VITALS: BP 140/75
--- NOTE | 2019-01-24 06:35 | NUR ---
Patient in room MED 316. I have received report from Rylie GRIMM and had the opportunity to ask questions and assume patient care.
--- NOTE | 2019-01-24 06:37 | NUR ---
Problems reprioritized. Patient report given, questions answered & plan of care reviewed with Mariah GRIMM.
[2019-01-24] MEDS: atorvastatin 20mg tablet PO SCH (08:00)
--- NOTE | 2019-01-24 08:02 | NUR ---
Patient refused insulin, made him aware according to our protocol on level 6 and after eating 60 carbs that he should receive 22 units. Patient refuses insulin.
[2019-01-24] MEDS: ceftazidime 1000mg in D5W 50ml 50 ML IV SCH (08:09)
[2019-01-24] MEDS: docusate sodium 100mg/10ml UD cup OGT SCH (08:11)
[2019-01-24] MEDS: fenofibrate 145mg tablet PO SCH (08:11)
[2019-01-24] MEDS: lactobacillus rhamnosus 10,000 MMU CELLS/CAPSULE PO SCH (08:11)
[2019-01-24] MEDS: carVEDilol 3.125mg tablet PO SCH (08:11)
[2019-01-24] MEDS: enoxaparin 40mg/0.4ml syringe SUBCUT SCH (08:11)
[2019-01-24] MEDS: amiodarone 200mg tablet PO SCH (08:11)
[2019-01-24] MEDS: pantoprazole 40mg Tablet.DR PO SCH (08:11)
[2019-01-24] MEDS: furosemide 40mg tablet PO SCH (08:11)
[2019-01-24] MEDS: lisinopril 20mg tablet PO SCH (08:11)
[2019-01-24] MEDS: ticagrelor 90mg tablet PO SCH (08:11)
[2019-01-24] MEDS: levoTHYROXINE 75mcg tablet PO SCH (08:19)
[2019-01-24] MEDS: potassium Cl 20 mEq SR tablet PO PRN ×2 (09:14→14:02)
[2019-01-24 11:00] VITALS: BP 121/75
[2019-01-24] MEDS: celeCOXIB 100mg capsule PO SCH (11:50)
--- NOTE | 2019-01-24 12:23 | NUR ---
Pt/family seen by RD for written/verbal DM ed w/ RD contact information provided. Pt declined verbal DM review and is aware of DM hx. PO 100% avg meals meeting needs. LBM 01/23. No nutrition concerns at this time. Will continue to monitor. Rec: 1. continue carb controlled diet 2. wt per rx Addendum: 01/24/19 at [address] Amended: Links added.
[2019-01-24] MEDS ORDERED: TICA90TA PO (12:49)
[2019-01-24] MEDS ORDERED: FURO40TA4 PO (12:49)
[2019-01-24] MEDS ORDERED: COR3.125T PO (12:49)
[2019-01-24] MEDS ORDERED: AMIO200T61 PO (12:49)
[2019-01-24] MEDS ORDERED: PANT40TA4 PO (12:49)
[2019-01-24] MEDS ORDERED: POTA10CA44 PO (12:50)
[2019-01-24] MEDS ORDERED: celeCOXIB 100mg capsule PO ONE (13:40)
[2019-01-24] MEDS: zolpidem 5mg tablet PO PRN (14:02)
--- NOTE | 2019-01-24 14:03 | NUR ---
INSTRUCTED BY DR. MUÑOZ TO GIVE PATIENT 1 AMBIEN TO TAKE NOW BEFORE HE DISCHARGES HOME. ACKNOWLEDGES THAT IT IS EARLIER THAN BEDTIME. PATIENT REQUEST.
--- NOTE | 2019-01-24 15:10 | NUR ---
Discussed discharge information with patient at this time, verbalized understanding. Tele and IV removed. Belongings sent with patient. Called medications into [facility] in [place]. Daughter and at bedside to transport him home. Will d/c via W/C to family private vehicle.
--- NOTE | 2019-01-24 15:30 | NUR ---
Discharged at this time without event via W/C per family private vehicle.
== END 2019-01-24 15:30 | disposition home or self-care (01) | DRG 246 ==
LOC: SSTAY O 06:36 → CICU 2S 10:11 → MED 3N 01-22 11:10
PROVIDERS: ADMIT Internal Medicine Critical Care Medicine; ATTEND Internal Medicine Cardiovascular Disease
PROC: 027136Z Dilation of Coronary Artery, Two Arteries with Three Drug-eluting Intraluminal Devices, Percutaneous Approach (ICD-10-PCS; principal; 2019-01-19)
PROC: 5A1935Z Respiratory Ventilation, Less than 24 Consecutive Hours (ICD-10-PCS; 2019-01-19)
PROC: 0BH17EZ Insertion of Endotracheal Airway into Trachea, Via Natural or Artificial Opening (ICD-10-PCS; 2019-01-19)
PROC: 02703ZZ Dilation of Coronary Artery, One Artery, Percutaneous Approach (ICD-10-PCS; 2019-01-19)
PROC: 5A12012 Performance of Cardiac Output, Single, Manual (ICD-10-PCS; 2019-01-19)
PROC: 5A2204Z Restoration of Cardiac Rhythm, Single (ICD-10-PCS; 2019-01-19)
PROC: 06HY33Z Insertion of Infusion Device into Lower Vein, Percutaneous Approach (ICD-10-PCS; 2019-01-19)
PROC: 5A09357 Assistance with Respiratory Ventilation, Less than 24 Consecutive Hours, Continuous Positive Airway Pressure (ICD-10-PCS; 2019-01-21)
DX: I25.10 Atherosclerotic heart disease of native coronary artery without angina pectoris (principal); J96.00 Acute respiratory failure, unspecified whether with hypoxia or hypercapnia; I46.9 Cardiac arrest, cause unspecified; I49.01 Ventricular fibrillation; E03.9 Hypothyroidism, unspecified; E11.9 Type 2 diabetes mellitus without complications; E66.01 Morbid (severe) obesity due to excess calories; E78.5 Hyperlipidemia, unspecified; I10 Essential (primary) hypertension; Z79.899 Other long term (current) drug therapy; Z88.8 Allergy status to other drugs, medicaments and biological substances; Z68.36 Body mass index [BMI] 36.0-36.9, adult; Z95.5 Presence of coronary angioplasty implant and graft; Y93.89 Activity, other specified; Y99.8 Other external cause status
CPT/HCPCS: 92950; 93306; C9600; C9601; C9607; 36415; 36600; 71045; 71250; 76937; 80048; 80053; 80202; 81001; 82140; 82150; 82803; 82810; 82948; 83036; 83605; 83690; 83721; 83735; 83880; 84100; 84145; 84439; 84443; 84484; 85018; 85025; 85379; 85384; 85610; 85730; 87040; 87070; 87081; 87088; 93005; 94002; 94003; 94640; 94667; 94668; 94760; 97110; 97116; 97161; 97530; 97535; 99152; 99153; A4620; A6258; C1725; C1760; C1769; C1874; C1894; C9113; G0378; J0153; J0171; J0282; J0461; J0713; J0780; J1170; J1644; J1650; J1815; J1940; J2001; J2060; J2250; J2930; J2997; J3010; J3246; J3370; J3490; J7030; Q0163; Q9967

== ENCOUNTER 2023-09-13 15:34 | Emergency (ER) | payer MEDICARE, SELFPAY ==
[~2023-09-13] VITALS: Ht 180.3 cm; Wt 122.0 kg
[~2023-09-13 15:34] MED LIST changes: +AMI200T PO; +COR3.125T PO; +FURO40TA4 PO; +ISOS30TA84 PO; -LISI-600 PO; +LISI20TA28 PO; +PANT40TA54 PO; +TICA90TA PO
[2023-09-13 15:49] VITALS: BP 139/70; PULSE 76; TEMP 97.4; O2SAT 94
[2023-09-13 16:20] LABS: BILIRUBIN,URINE SMALL (Neg); CLARITY,URINE CLEAR (Clear); COLOR,URINE YELLOW (Yellow); GLUCOSE, URINE NEGATIVE (Neg); KETONES,URINE 15 mg/dl (Neg); LEUKOCYTE ESTERASE ,URINE NEGATIVE (Neg); NITRITES, URINE NEGATIVE (Neg); OCCULT BLOOD,URINE NEGATIVE (Neg); PROTEIN,URINE NEGATIVE (Neg); UA COLLECTION TYPE CLN CATCH MIDSTREAM; UROBILINOGEN,URINE 0.2 E.U/dL (0.2-1.0)
[2023-09-13] MEDS ORDERED: CLOT15CR35 TOP (16:22)
[2023-09-13 16:51] VITALS: RESP 16
[2023-09-13] MEDS ORDERED: SULF1TAB49 PO (17:47)
== END 2023-09-13 18:04 | disposition home or self-care (01) ==
LOC: ER 15:34
DX: B37.42 Candidal balanitis (principal); R35.0 Frequency of micturition; Z88.8 Allergy status to other drugs, medicaments and biological substances; Z79.899 Other long term (current) drug therapy
CPT/HCPCS: 81003; 99284

== ENCOUNTER 2024-04-07 12:29 | Outpatient (CLI) | payer MEDICARE, OTHER ==
[~2024-04-07 12:29] MED LIST changes: +CARV3.1232 PO; +CLOT15CR35 TOP; -COR3.125T PO
== END 2024-04-07 23:59 | disposition home or self-care (01) ==
LOC: CARD DIAG 12:29
PROVIDERS: ATTEND Internal Medicine Cardiovascular Disease
DX: I08.0 Rheumatic disorders of both mitral and aortic valves (principal); I21.9 Acute myocardial infarction, unspecified; I25.10 Atherosclerotic heart disease of native coronary artery without angina pectoris; I48.0 Paroxysmal atrial fibrillation
CPT/HCPCS: 93306

== ENCOUNTER 2024-08-19 19:20 | Emergency (ER) | payer MEDICARE, OTHER ==
[~2024-08-19] VITALS: Ht 182.9 cm; Wt 112.3 kg
[2024-08-19 20:00] LABS: BASOPHILS # (AUTO) 0.1 X10'3 (0-0.2); BASOPHILS % (AUTO) 0.5 % (0-1); EOSINOPHILS # (AUTO) 0.3 X10'3 (0-0.9); EOSINOPHILS % (AUTO) 2.2 % (0-6); HEMATOCRIT 28.9 % (42.0-52.0); HEMOGLOBIN 9.2 g/dl (14.0-17.9); LYMPHOCYTES # (AUTO) 1.1 X10'3 (1.1-4.8); LYMPHOCYTES % (AUTO) 8.9 % (21-51); MEAN CORPUSCULAR HGB CONC 31.7 g/dL (33.0-36.5); MEAN CORPUSCULAR VOLUME 85.3 FL (78-98); MEAN PLATELET VOLUME 7.5 FL (7.4-10.4); MONOCYTES # (AUTO) 0.9 X10'3 (0-0.9); MONOCYTES % (AUTO) 6.9 % (2-12); NEUTROPHILS # (AUTO) 10.3 X10'3 (1.8-7.7); NEUTROPHILS % (AUTO) 81.5 % (42-75); PLATELET COUNT 370 X10'3 (140-440); RED BLOOD COUNT 3.39 X10'6 (4.70-6.10); RED CELL DISTRIBUTION WIDTH 16.4 % (11.5-14.5); WHITE BLOOD COUNT 12.6 X10'3 (4.5-11.0)
[2024-08-19 20:12] LABS: ALANINE AMINOTRANSFERASE 16 U/L (12-78); ALBUMIN 3.2 G/DL (3.4-5.0); ALBUMIN/GLOBULIN RATIO 0.7 (1.1-1.5); ALKALINE PHOSPHATASE 124 IU/L (46-116); ANION GAP 10 (8-16); ASPARTATE AMINO TRANSFERASE 14 U/L (10-37); BILIRUBIN,TOTAL 0.2 MG/DL (0.1-1.0); BLOOD UREA NITROGEN 38 MG/DL (7-18); BUN/CREATININE RATIO 14.2 (10.0-20.0); CALCIUM 8.4 MG/DL (8.5-10.1); CHLORIDE 108 MMOL/L (99-107); CREATININE 2.68 MG/DL (0.60-1.10); GLUCOSE 169 MG/DL (70-104); LIPASE 25 U/L (16-77); POTASSIUM 4.8 MMOL/L (3.5-5.1); SODIUM 141 MMOL/L (135-145); TOTAL CARBON DIOXIDE 22.7 MMOL/L (24-32); eCRCL 29 ML/MIN; eGFR 24 ML/MIN
[2024-08-20] MEDS: acetaminophen 325mg tablet PO ONE (01:30)
[2024-08-20 01:59] LABS: BILIRUBIN,URINE NEGATIVE (Neg); CLARITY,URINE CLEAR (Clear); COLOR,URINE YELLOW (Yellow); GLUCOSE, URINE NEGATIVE (Neg); KETONES,URINE NEGATIVE (Neg); LEUKOCYTE ESTERASE ,URINE TRACE (Neg); NITRITES, URINE NEGATIVE (Neg); OCCULT BLOOD,URINE NEGATIVE (Neg); PH,URINE 5.5 (4.8-8.0); PROTEIN,URINE TRACE mg/dl (Neg); UROBILINOGEN,URINE 0.2 E.U/dL (0.2-1.0)
[2024-08-20 02:00] LABS: UA COLLECTION TYPE CLN CATCH MIDSTREAM
[2024-08-20 02:08] LABS: BACTERIA,URINE 1+ /HPF (Neg); MUCUS STRANDS FEW /LPF (Neg); RBC,URINE NONE SEEN /HPF (0-2); SQUAMOUS EPITHELIAL CELL,UR FEW /LPF (FEW)
[2024-08-20] MEDS ORDERED: TRAM50TA2 PO (03:33)
[2024-08-20] MEDS: triamcinolone acetonide 40mg/ml inj IM ONE (03:48)
[2024-08-20] MEDS: dexamethasone sod phosphate 10mg/ml inj IM STA (03:52)
[2024-08-20] MEDS: traMADol 50MG tablet PO ONE (03:53)
[2024-08-20 03:56] VITALS: BP 138/78; PULSE 73; RESP 16; TEMP 98.3; O2SAT 98
[2024-08-20] MEDS ORDERED: CYCL-1 PO (04:01)
== END 2024-08-20 04:00 | disposition home or self-care (01) ==
LOC: ER 19:20
DX: D17.79 Benign lipomatous neoplasm of other sites (principal); M54.50 Low back pain, unspecified; Z88.5 Allergy status to narcotic agent; Z88.8 Allergy status to other drugs, medicaments and biological substances; Z85.46 Personal history of malignant neoplasm of prostate; Z79.899 Other long term (current) drug therapy
CPT/HCPCS: 36415; 74176; 80053; 81001; 83690; 85025; 87088; 96372; 99285; J1100; J3301